=== PATIENT | male | born 1930 | race Caucasian/White ===

== ENCOUNTER 2018-06-14 17:49 | Emergency (ER) | payer MEDICARE, BC ==
[~2018-06-14] VITALS: Ht 167.6 cm; Wt 95.3 kg
[2018-06-14] MEDS ORDERED: TDAP DIPH,PERTUSS,TET VAC/PF 0.5 ML DISP.SYRIN IM ONE ×2 (18:00→18:03)
--- NOTE | 2018-06-14 18:43 | NUR ---
Patient discharged to home in stable conditon & brisk steady gait. Written and verbal after care instructions given to patient & spouse. Patient and spouse verbalized understanding of instructions.
== END 2018-06-14 18:45 | disposition home or self-care (01) ==
LOC: ER 17:51
DX: S01.01XA Laceration without foreign body of scalp, initial encounter (principal); E03.9 Hypothyroidism, unspecified; W01.198A Fall on same level from slipping, tripping and stumbling with subsequent striking against other object, initial encounter; Y93.89 Activity, other specified; Y92.89 Other specified places as the place of occurrence of the external cause; Y99.8 Other external cause status
CPT/HCPCS: 12002; 70450; 90471; 90715; 99284; J3490; A4217; A4663

== ENCOUNTER 2018-06-16 10:32 | Emergency (ER) | payer MEDICARE, BC ==
[~2018-06-16] VITALS: Ht 165.1 cm; Wt 94.3 kg
--- NOTE | 2018-06-16 11:21 | NUR ---
Nelida pt for wound assessment, patient has a scalp laceration with gordo. wound assessment and gordo removed by dr brooks. cleaned and covered and pt discharged to home.
== END 2018-06-16 11:26 | disposition home or self-care (01) ==
LOC: ER 10:32
DX: S01.01XD Laceration without foreign body of scalp, subsequent encounter (principal); E03.9 Hypothyroidism, unspecified; X58.XXXD Exposure to other specified factors, subsequent encounter
CPT/HCPCS: A4663; L8699